=== PATIENT | female | born 1995 | race Caucasian/White ===

== ENCOUNTER 2024-06-30 09:41 | Emergency (ER) | payer MEDICAID ==
[~2024-06-30] VITALS: Ht 162.6 cm; Wt 64.3 kg
[2024-06-30 19:17] VITALS: BP 133/93; PULSE 117; RESP 16; TEMP 98.1; O2SAT 100
== END 2024-06-30 15:03 | disposition home or self-care (01) ==
LOC: ER 09:42
DX: N92.1 Excessive and frequent menstruation with irregular cycle (principal); R10.30 Lower abdominal pain, unspecified; Z88.0 Allergy status to penicillin
CPT/HCPCS: 36415; 76830; 76856; 84702; 93976; 99284